=== PATIENT | female | born 1995 ===

== ENCOUNTER → 2023-05-10 11:22 | Outpatient (CLI) | payer OTHER, SELFPAY ==
--- NOTE | 2023-05-10 | DI.MRI.S_ITS ---
PROCEDURE: MR HAND RT WO CON INDICATIONS: Pain in right finger(s) TECHNIQUE: Noncontrast oblique coronal T1 spin echo and T2 fast spin echo with fat saturation, axial and sagittal T2 fast spin echo with fat saturation, through the thumb. COMPARISON: None. FINDINGS: Image quality: Excellent. Bones: The bones are normally aligned, without marrow contusions or fractures. No intra-osseous lesions. Mild degenerative changes are seen at the 1st carpometacarpal joint. Miscellaneous: The radial and ulnar collateral ligaments at the 1st metacarpophalangeal joint are intact. There is mild thickening of the ulnar collateral ligament at the 1st interphalangeal joint that may indicate a remote prior low-grade sprain. The radial collateral ligament at the 1st interphalangeal joint is intact. Trace tenosynovitis of the flexor pollicis longus tendon at the level of the 1st metacarpal. The remaining visualized flexor and extensor tendons are intact. A ganglion cyst is seen at the volar aspect of the 2nd carpometacarpal joint measuring approximately 11 x 3 x 6 mm. The musculature of the hand is normal in signal intensity and bulk. IMPRESSION: 1. Trace flexor pollicis longus tenosynovitis. 2. Suspected remote prior low-grade sprain of the ulnar collateral ligament at the 1st interphalangeal joint. The collateral ligaments are intact at the 1st metacarpophalangeal joint. 3. Ganglion cyst volar to the 2nd carpometacarpal joint measuring up to 11 mm in maximum dimension. Approved by: Ricardo Collier M.D. on 05/11/2023 at 9:11
== END ==
PROVIDERS: PCP Student in an Organized Health Care Education/Training Program; Referring Provider Student in an Organized Health Care Education/Training Program; Visit Provider Student in an Organized Health Care Education/Training Program
DX: M67.441 Ganglion, right hand (principal); M79.644 Pain in right finger(s)
CPT/HCPCS: 73218

== ENCOUNTER → 2024-05-09 10:47 | Outpatient (CLI) | payer OTHER, SELFPAY ==
[2024-05-09 12:52] LABS: Calcium 8.7 mg/dL (8.4-10.2)
== END ==
PROVIDERS: Referring Provider Chiropractor; Visit Provider Chiropractor
DX: E58 Dietary calcium deficiency (principal)
CPT/HCPCS: 36415; 82310